=== PATIENT | male | born 1950 | race Caucasian/White ===

== ENCOUNTER → 2023-12-29 08:32 | Outpatient (REF) | payer MEDICARE, SELFPAY ==
[2023-12-29 11:36] LABS: % Basophils 0.5 % (0-2); % Eosinophils 2.8 % (0-6); % Immature Granulocytes 0.2 % (0-0.5); % Lymphocytes 22.3 % (20.5-51.1); % Monocytes 8.6 % (1.7-9.3); % Neutrophils 65.6 % (42.2-75.2); Absolute Eosinophils 0.2 10^3/uL (0-0.7); Absolute Lymphocytes 1.8 10^3/uL (1.2-3.4); Absolute Monocytes 0.7 10^3/uL (0.1-0.6); Absolute Neutrophils 5.4 10^3/uL (1.4-6.5); Hematocrit 45.1 % (39.0-52.0); Hemoglobin 14.9 g/dL (13.0-18.0); Mean Corpuscular Hgb 29.4 pg (27.0-31.0); Mean Corpuscular Volume 89.1 fL (80.0-94.0); Mean Platelet Volume 10.1 fL (7.4-10.4); Nucleated Red Blood Cells % 0 % (-); Platelet Count 272 10^3/uL (130-400); Red Blood Cell Count 5.06 10^6/uL (4.70-6.10); Red Cell Dist. Width 13.2 % (11.5-14.5); White Blood Cell Count 8.2 10^3/uL (4.8-10.8)
[2023-12-29 11:41] LABS: Urine Albumin 1+ (Neg - Trace); Urine Bilirubin Negative (Negative); Urine Character Clear (Clear); Urine Color Yellow; Urine Glucose 3+ (Negative); Urine Ketone Negative (Negative); Urine Leukocyte Negative (Negative); Urine Nitrite Negative (Negative); Urine Occult Blood Negative (Negative); Urine Specific Gravity 1.015 (<1.030); Urine Urobilinogen Negative (Neg - 1+)
[2023-12-29 11:52] LABS: ALT (SGPT) 35 U/L (0-50); AST (SGOT) 33 U/L (17-59); Albumin 4.2 g/dl (3.5-5.0); Alkaline Phosphatase 74 U/L (38-126); Blood Urea Nitrogen 31 mg/dl (9-20); Calcium 9.9 mg/dl (8.4-10.2); Carbon Dioxide 28 mmol/L (22-30); Chloride 102 mmol/L (98-107); Glucose 156 mg/dl (70-99); HDL Cholesterol 40 mg/dl; LDL Cholesterol, Calculated 57 mg/dl; Potassium 4.9 mmol/L (3.5-5.1); Sodium 140 mmol/L (135-145); Total Bilirubin 0.9 mg/dl (0.2-1.3); Total Cholesterol 125 mg/dl (50-199); Total Protein 6.9 g/dl (6.3-8.2); Triglyceride 144 mg/dl (10-149); Very Low Density Lipoprotein 28 mg/dl (0-30); eGFR 57.65
[2023-12-29 12:22] LABS: PSA, Total - Screen 1.12 ng/ml (0.0-4.0); TSH Reflex To Free T4 4.37 uIU/ml (0.47-4.68)
[2023-12-29 14:00] LABS: Urine Mucus Few; Urine Urothelial Cell 0-2 /LPF (FEW)
[2023-12-29 14:01] LABS: Urine Red Blood Cell 0-2 /HPF (0-2); Urine White Cell 0-2 /HPF (0-5)
[2023-12-29 14:04] LABS: Glycohemoglobin (HgbA1c) 7.2 % (4.0-5.6)
[2023-12-29 15:53] LABS: Microalbumin, Random Urine 53.3 mg/dl (0.6-1.7); Microalbumin/creatinine Ratio 780.4 mg/g
== END ==
LOC: HWLAB 08:32
PROVIDERS: ATTENDING PHYSICIAN Nurse Practitioner Adult Health; REFERRING PHYSICIAN Specialist
DX: R80.9 Proteinuria, unspecified (principal); I10 Essential (primary) hypertension; E87.5 Hyperkalemia; E11.9 Type 2 diabetes mellitus without complications; N18.31 Chronic kidney disease, stage 3a; E11.59 Type 2 diabetes mellitus with other circulatory complications; Z12.5 Encounter for screening for malignant neoplasm of prostate; E78.2 Mixed hyperlipidemia
CPT/HCPCS: 36415; 80053; 80061; 81003; 81015; 82043; 82570; 83036; 84443; 85025; G0103

== ENCOUNTER → 2024-02-02 08:37 | Outpatient (REF) | payer MEDICARE, SELFPAY ==
[2024-02-02 13:06] LABS: Blood Urea Nitrogen 33 mg/dl (9-20); Calcium 9.4 mg/dl (8.4-10.2); Carbon Dioxide 25 mmol/L (22-30); Chloride 105 mmol/L (98-107); Glucose 111 mg/dl (70-99); Potassium 4.7 mmol/L (3.5-5.1); Sodium 137 mmol/L (135-145); eGFR > 60.00
== END ==
LOC: HWLAB 08:37
PROVIDERS: ATTENDING PHYSICIAN Specialist; FAMILY PHYSICIAN Nurse Practitioner Adult Health
DX: I10 Essential (primary) hypertension (principal)
CPT/HCPCS: 36415; 80048

== ENCOUNTER → 2024-02-07 09:01 | Outpatient (REF) | payer MEDICARE, SELFPAY | LOC: RAD 09:01 | PROVIDERS: ATTENDING PHYSICIAN Surgery Vascular Surgery; FAMILY PHYSICIAN Nurse Practitioner Adult Health | DX: I73.9 Peripheral vascular disease, unspecified (principal) | CPT/HCPCS: 93922; 93925 ==

== ENCOUNTER → 2024-03-27 06:51 | Outpatient (REF) | payer MEDICARE, SELFPAY | LOC: HWRAD 06:51 | PROVIDERS: ATTENDING PHYSICIAN Nurse Practitioner Adult Health | DX: Z87.81 Personal history of (healed) traumatic fracture (principal); Z13.820 Encounter for screening for osteoporosis | CPT/HCPCS: 77080 ==

== ENCOUNTER → 2024-04-19 08:07 | Outpatient (REF) | payer MEDICARE, SELFPAY ==
[2024-04-19 11:33] LABS: Blood Urea Nitrogen 37 mg/dl (9-20); Calcium 9.8 mg/dl (8.4-10.2); Carbon Dioxide 26 mmol/L (22-30); Chloride 105 mmol/L (98-107); Glucose 91 mg/dl (70-99); Potassium 4.9 mmol/L (3.5-5.1); Sodium 141 mmol/L (135-145); eGFR 52.41
== END ==
LOC: HWLAB 08:07
PROVIDERS: ATTENDING PHYSICIAN Specialist; FAMILY PHYSICIAN Nurse Practitioner Adult Health
DX: R80.9 Proteinuria, unspecified (principal); I10 Essential (primary) hypertension; E87.5 Hyperkalemia; N18.31 Chronic kidney disease, stage 3a
CPT/HCPCS: 36415; 80048

== ENCOUNTER → 2024-06-13 06:42 | Outpatient (REF) | payer MEDICARE, SELFPAY | LOC: PAVMRI 06:42 | PROVIDERS: ATTENDING PHYSICIAN Orthopaedic Surgery; FAMILY PHYSICIAN Nurse Practitioner Adult Health | DX: M54.50 Low back pain, unspecified (principal); M54.6 Pain in thoracic spine | CPT/HCPCS: 72146; 72148 ==

== ENCOUNTER → 2024-08-08 09:54 | Outpatient (REF) | payer MEDICARE, SELFPAY ==
[2024-08-08 12:09] LABS: ALT (SGPT) 23 U/L (0-50); AST (SGOT) 24 U/L (17-59); Albumin 4.7 g/dl (3.5-5.0); Alkaline Phosphatase 71 U/L (38-126); Amylase 162 U/L (30-110); Direct Bilirubin 0.3 mg/dl (0.0-0.4); Lipase 229 U/L (23-300); Total Bilirubin 0.7 mg/dl (0.2-1.3); Total Protein 7.3 g/dl (6.3-8.2)
[2024-08-08 12:31] LABS: Glycohemoglobin (HgbA1c) 6.6 % (4.0-5.6)
== END ==
LOC: HWLAB 09:54
PROVIDERS: ATTENDING PHYSICIAN Nurse Practitioner Adult Health
DX: E11.59 Type 2 diabetes mellitus with other circulatory complications (principal); E78.2 Mixed hyperlipidemia; Z87.19 Personal history of other diseases of the digestive system
CPT/HCPCS: 36415; 80076; 82150; 83036; 83690

== ENCOUNTER → 2024-09-25 07:51 | Outpatient (REF) | payer MEDICARE, SELFPAY ==
[2024-09-25 09:46] LABS: % Basophils 0.4 % (0-2); % Eosinophils 0.2 % (0-6); % Immature Granulocytes 0.4 % (0-0.5); % Lymphocytes 24.5 % (20.5-51.1); % Neutrophils 65.5 % (42.2-75.2); Absolute Lymphocytes 2.7 10^3/uL (1.2-3.4); Absolute Neutrophils 7.3 10^3/uL (1.4-6.5); Hematocrit 48.5 % (39.0-52.0); Hemoglobin 16.1 g/dL (13.0-18.0); Mean Corp Hgb Conc. 33.2 g/dL (33.0-37.0); Mean Corpuscular Hgb 29.8 pg (27.0-31.0); Mean Corpuscular Volume 89.6 fL (80.0-94.0); Mean Platelet Volume 9.7 fL (7.4-10.4); Nucleated Red Blood Cells % 0 % (-); Platelet Count 307 10^3/uL (130-400); Red Blood Cell Count 5.41 10^6/uL (4.70-6.10); Red Cell Dist. Width 13.2 % (11.5-14.5); White Blood Cell Count 11.1 10^3/uL (4.8-10.8)
[2024-09-25 10:00] LABS: Blood Urea Nitrogen 43 mg/dl (9-20); Calcium 10.8 mg/dl (8.4-10.2); Carbon Dioxide 25 mmol/L (22-30); Chloride 103 mmol/L (98-107); Glucose 176 mg/dl (70-99); Potassium 5.5 mmol/L (3.5-5.1); Sodium 144 mmol/L (135-145); eGFR 52.41
[2024-09-25 10:53] LABS: Microalbumin/creatinine Ratio 661.5 mg/g
== END ==
LOC: HWLAB 07:51
PROVIDERS: ATTENDING PHYSICIAN Specialist; FAMILY PHYSICIAN Nurse Practitioner Adult Health
DX: I10 Essential (primary) hypertension (principal); E87.5 Hyperkalemia; R80.9 Proteinuria, unspecified; E11.59 Type 2 diabetes mellitus with other circulatory complications; N18.31 Chronic kidney disease, stage 3a
CPT/HCPCS: 36415; 80048; 82043; 82570; 85025

== ENCOUNTER → 2024-11-20 09:21 | Outpatient (REF) | payer MEDICARE, SELFPAY ==
[2024-11-20 11:44] LABS: Blood Urea Nitrogen 45 mg/dl (9-20); Calcium 9.5 mg/dl (8.4-10.2); Carbon Dioxide 26 mmol/L (22-30); Chloride 100 mmol/L (98-107); Glucose 144 mg/dl (70-99); Potassium 5.1 mmol/L (3.5-5.1); Sodium 137 mmol/L (135-145); eGFR 52.41
== END ==
LOC: HWLAB 09:21
PROVIDERS: ATTENDING PHYSICIAN Specialist; FAMILY PHYSICIAN Nurse Practitioner Adult Health
DX: I10 Essential (primary) hypertension (principal)
CPT/HCPCS: 36415; 80048

== ENCOUNTER → 2025-01-12 08:12 | Outpatient (REF) | payer MEDICARE, SELFPAY | LOC: HWRCS 08:12 | PROVIDERS: ATTENDING PHYSICIAN Internal Medicine Cardiovascular Disease; FAMILY PHYSICIAN Nurse Practitioner Adult Health | DX: I25.2 Old myocardial infarction (principal) | CPT/HCPCS: 93306 ==

== ENCOUNTER → 2025-01-19 07:52 | Outpatient (REF) | payer MEDICARE, SELFPAY ==
[2025-01-19 10:15] LABS: % Basophils 0.3 % (0-2); % Eosinophils 0.5 % (0-6); % Immature Granulocytes 0.4 % (0-0.5); % Lymphocytes 18.5 % (20.5-51.1); % Monocytes 9.1 % (1.7-9.3); % Neutrophils 71.2 % (42.2-75.2); Absolute Eosinophils 0.1 10^3/uL (0-0.7); Absolute Lymphocytes 1.8 10^3/uL (1.2-3.4); Absolute Monocytes 0.9 10^3/uL (0.1-0.6); Absolute Neutrophils 6.8 10^3/uL (1.4-6.5); Hematocrit 44.8 % (39.0-52.0); Hemoglobin 14.8 g/dL (13.0-18.0); Mean Corpuscular Hgb 29.3 pg (27.0-31.0); Mean Corpuscular Volume 88.7 fL (80.0-94.0); Mean Platelet Volume 9.7 fL (7.4-10.4); Nucleated Red Blood Cells % 0 % (-); Platelet Count 272 10^3/uL (130-400); Red Blood Cell Count 5.05 10^6/uL (4.70-6.10); Red Cell Dist. Width 13.2 % (11.5-14.5); White Blood Cell Count 9.5 10^3/uL (4.8-10.8)
[2025-01-19 10:23] LABS: Blood Urea Nitrogen 33 mg/dl (9-20); Calcium 10.4 mg/dl (8.4-10.2); Carbon Dioxide 26 mmol/L (22-30); Chloride 100 mmol/L (98-107); Glucose 111 mg/dl (70-99); Sodium 138 mmol/L (135-145); eGFR 52.09
[2025-01-19 12:13] LABS: Microalbumin, Random Urine > 57.0 mg/dl (0.6-1.7)
== END ==
LOC: HWLAB 07:52
PROVIDERS: ATTENDING PHYSICIAN Specialist; FAMILY PHYSICIAN Nurse Practitioner Adult Health
DX: I10 Essential (primary) hypertension (principal); E87.5 Hyperkalemia; R80.9 Proteinuria, unspecified; E11.59 Type 2 diabetes mellitus with other circulatory complications; N18.31 Chronic kidney disease, stage 3a
CPT/HCPCS: 36415; 80048; 82043; 82570; 85025

== ENCOUNTER → 2025-02-16 08:53 | Outpatient (REF) | payer MEDICARE, SELFPAY | LOC: RAD 08:53 | PROVIDERS: ATTENDING PHYSICIAN Registered Nurse; FAMILY PHYSICIAN Nurse Practitioner Adult Health | DX: I73.9 Peripheral vascular disease, unspecified (principal) | CPT/HCPCS: 93922; 93925 ==

== ENCOUNTER → 2025-03-13 07:38 | Outpatient (REF) | payer MEDICARE, SELFPAY | LOC: RAD 07:38 | PROVIDERS: ATTENDING PHYSICIAN Surgery Vascular Surgery; FAMILY PHYSICIAN Nurse Practitioner Adult Health | DX: I72.3 Aneurysm of iliac artery (principal) | CPT/HCPCS: 76770 ==

== ENCOUNTER → 2025-03-16 09:26 | Outpatient (REF) | payer MEDICARE, SELFPAY ==
[2025-03-16 12:20] LABS: Amylase 275 U/L (30-110); HDL Cholesterol 33 mg/dl; LDL Cholesterol, Calculated 33 mg/dl; Lipase 1234 U/L (23-300); Total Cholesterol 96 mg/dl (50-199); Triglyceride 151 mg/dl (10-149); Very Low Density Lipoprotein 30 mg/dl (0-30)
[2025-03-16 12:35] LABS: Vitamin D, 25-OH*** 62.3 ng/mL (30-80)
[2025-03-16 12:45] LABS: Glycohemoglobin (HgbA1c) 6.9 % (4.0-5.6)
[2025-03-16 12:49] LABS: TSH Reflex To Free T4 2.35 uIU/ml (0.47-4.68)
== END ==
LOC: HWLAB 09:26
PROVIDERS: ATTENDING PHYSICIAN Internal Medicine Cardiovascular Disease; FAMILY PHYSICIAN Nurse Practitioner Adult Health; REFERRING PHYSICIAN Specialist
DX: E78.2 Mixed hyperlipidemia (principal); Z87.19 Personal history of other diseases of the digestive system; Z87.81 Personal history of (healed) traumatic fracture; M85.88 Other specified disorders of bone density and structure, other site; E11.59 Type 2 diabetes mellitus with other circulatory complications; R80.9 Proteinuria, unspecified; Z12.5 Encounter for screening for malignant neoplasm of prostate; Z13.9 Encounter for screening, unspecified
CPT/HCPCS: 80061; 82150; 82306; 83036; 83690; 84443; G0103

== ENCOUNTER 2025-03-16 15:49 | Emergency (ER) | payer MEDICARE, SELFPAY ==
[2025-03-16] VITALS (7 sets, daily range): BP systolic 107–121; BP diastolic 69–78; BMI 26.9
[2025-03-16 16:33] LABS: % Basophils 0.3 % (0-2); % Eosinophils 2.9 % (0-6); % Immature Granulocytes 0.3 % (0-0.5); % Lymphocytes 20.5 % (20.5-51.1); % Monocytes 9.5 % (1.7-9.3); % Neutrophils 66.5 % (42.2-75.2); Absolute Eosinophils 0.3 10^3/uL (0-0.7); Absolute Lymphocytes 1.8 10^3/uL (1.2-3.4); Absolute Monocytes 0.8 10^3/uL (0.1-0.6); Absolute Neutrophils 5.9 10^3/uL (1.4-6.5); Hematocrit 39.6 % (39.0-52.0); Hemoglobin 13.1 g/dL (13.0-18.0); Mean Corp Hgb Conc. 33.1 g/dL (33.0-37.0); Mean Corpuscular Hgb 29.1 pg (27.0-31.0); Mean Platelet Volume 9.6 fL (7.4-10.4); Nucleated Red Blood Cells % 0 % (-); Platelet Count 255 10^3/uL (130-400); Red Cell Dist. Width 13.3 % (11.5-14.5); White Blood Cell Count 8.9 10^3/uL (4.8-10.8)
[2025-03-16 17:14] LABS: ALT (SGPT) 21 U/L (0-50); AST (SGOT) 21 U/L (17-59); Albumin 4.1 g/dl (3.5-5.0); Alkaline Phosphatase 56 U/L (38-126); Blood Urea Nitrogen 49 mg/dl (9-20); Calcium 9.1 mg/dl (8.4-10.2); Carbon Dioxide 23 mmol/L (22-30); Chloride 104 mmol/L (98-107); Glucose 157 mg/dl (70-99); Lipase 537 U/L (23-300); Potassium 6.3 mmol/L (3.5-5.1); Sodium 138 mmol/L (135-145); Total Bilirubin 0.7 mg/dl (0.2-1.3); Total Protein 6.7 g/dl (6.3-8.2); eGFR 36.11
--- NOTE | 2025-03-16 18:13 | ED.GENMED ---
History of Present Illness
<Camilo Lawson DO - Last Filed: 03/16/25 18:13>
General
Chief Complaint: Abnormal Lab Value
Time Seen by Provider: 03/16/25 16:45
<Kristin Frias NP - Last Filed: 03/16/25 23:14>
General
Source: patient
Exam Limitations: none
Nursing documentation reviewed up to this point in time: agreed with
History of Present Illness
History of Present Illness:
Patient sent to ED by PCP for elevated Lipase. Patient has a history of pancreatitis. He is currently taking trulicty and his PCP continues to monitor his labs. His Lipase this AM resulted at 1234. He was advised to come to ED. He denies any
abdominal pain. Feels well.
Past History
<Camilo Lawson, DO - Last Filed: 03/16/25 18:13>
Past History
ED Past Medical History: Other (Coronary disease with stent, A. fib on Eliquis, hyperlipidemia, SC, sleep apnea, GERD, peptic ulcer disease, diabetes)
Social History
Tobacco: Former smoker
Alcohol: None
Family History
Family History: Other (Father with colon cancer)
<Kristin Frias NP - Last Filed: 03/16/25 23:14>
Past History
ED Past Medical History: GERD, HTN, Hypercholesterolemia, NIDDM and Other (Hyperkalemia)
Review of Systems
<Kristin Frias NP - Last Filed: 03/16/25 23:14>
Review of Systems
Allergies reviewed?: Yes
All Other Systems: ROS reviewed and negative except as documented in HPI and ROS
Constitutional: Reports no symptoms
EENT: Reports no symptoms
Respiratory: Reports no symptoms
Cardiac: Reports no symptoms
ABD/GI: Reports no symptoms
: Reports no symptoms
Musculoskeletal: Reports no symptoms
Skin: Reports no symptoms
Neurological: Reports no symptoms
Psychiatric: Reports no symptoms
Phy Exam
<Kristin Frias BREAK OUT WORKER - Last Filed: 03/16/25 23:14>
General Physical Exam
General Presentation: well appearing and no apparent distress
General age: appears stated age
General Skin: warm and dry
General Habitus: normal
General Mental: alert
Cardiovascular Exam
Cardiovascular Exam: regular rate/rhythm and no edema
Pulmonary Exam
Pulmonary Exam: lungs clear, no respiratory distress and chest non tender
Gastrointestinal Exam
Gastrointestinal Exam: normal bowel sounds, non tender, soft, no organomegaly, no pulsatile mass and non distended
Musculoskeletal Exam
Musculoskeletal Exam: full ROM and neuro vasc intact
Skin Exam
Skin Exam: normal color, warm/dry and no rash
Psychiatric Exam
Psychiatric Exam: normal mood/affect
Course
<Camilo Lawson, DO - Last Filed: 03/16/25 18:13>
Orders/Labs/Results
Orders:
Orders
03/16/25 16:23
Complete Blood Count/With Diff Urgent
Comprehensive Metabolic Panel Urgent
Lipase Urgent
03/16/25 17:29
Electrocardiogram (*1) Urgent
Reason for Study: Other
Other Reason for Exam: hyperkalemia
EKG- Treatment ONCE
03/16/25 18:00
Albuterol Sulfate [Ventolin Nebules] 10 mg INH R NOW STA
Dextrose 50%-Water [Dextrose 50% Syringe] 12.5 grams IV [id number] PRN
Dextrose 50%-Water [Dextrose 50% Syringe] 25 grams IV NOW STA
Insulin Human Regular [Novolin R] 5 units IV NOW STA
03/16/25 18:05
Bedside Glucose PRE IV Insulin- HyperK+ NOW
03/16/25 18:06
Sodium Zirconium Cyclosilicate [Lokelma] 10 gram PO NOW STA
03/16/25 18:15
0.9% Sodium Chloride 1000 ml [Nss] 1,000 ml IV 999 mls/hr
03/16/25 19:35
Bedside Glucose POST IV Insulin- HyperK+ Q1HX2,Q2HX2
03/16/25 20:28
Potassium Urgent
Comment: draw 2 hours after regular insulin IV administration
03/16/25 22:24
Potassium Urgent
Comment: draw 4 hours after Lokelma administered
Abnormal Lab Results
03/16/25 03/16/25 03/16/25
16:23 18:30 19:36
RBC 4.50 L 10^6/uL
(4.70-6.10)
Absolute Monos (auto) 0.8 H 10^3/uL
(0.1-0.6)
Monocytes % 9.5 H %
(1.7-9.3)
Potassium 6.3 H* mmol/L
(3.5-5.1)
BUN 49 H mg/dl
(9-20)
Creatinine 1.9 H mg/dL
(0.7-1.3)
Glucose 157 H mg/dl
(70-99)
Lipase 537 H U/L
(23-300)
POC Glucose 107 H mg/dl 121 H mg/dl
(70-99) (70-99)
03/16/25
20:28
RBC
Absolute Monos (auto)
Monocytes %
Potassium
BUN
Creatinine
Glucose
Lipase
POC Glucose 105 H mg/dl
(70-99)
03/16/25 16:23
03/16/25 22:24
Vital Signs
Initial and Last Documented VS:
Initial Vital Signs
Temp Pulse Resp BP Pulse Ox
97.6 F 69 18 111/77 97
03/16/25 16:08 03/16/25 16:08 03/16/25 16:08 03/16/25 16:08 03/16/25 16:08
Last Documented Vital Signs
Temp Pulse Resp BP Pulse Ox
97.6 F 70 20 121/78 95
03/16/25 17:54 03/16/25 22:51 03/16/25 22:51 03/16/25 22:51 03/16/25 22:51
<Kristin Frias NP - Last Filed: 03/16/25 23:14>
Orders/Labs/Results
Orders:
Orders
03/16/25 16:23
Complete Blood Count/With Diff Urgent
Comprehensive Metabolic Panel Urgent
Lipase Urgent
03/16/25 17:29
Electrocardiogram (*1) Urgent
Reason for Study: Other
Other Reason for Exam: hyperkalemia
EKG- Treatment ONCE
03/16/25 18:00
Albuterol Sulfate [Ventolin Nebules] 10 mg INH R NOW STA
Dextrose 50%-Water [Dextrose 50% Syringe] 12.5 grams IV [id number] PRN
Dextrose 50%-Water [Dextrose 50% Syringe] 25 grams IV NOW STA
Insulin Human Regular [Novolin R] 5 units IV NOW STA
03/16/25 18:05
Bedside Glucose PRE IV Insulin- HyperK+ NOW
03/16/25 18:06
Sodium Zirconium Cyclosilicate [Lokelma] 10 gram PO NOW STA
03/16/25 18:15
0.9% Sodium Chloride 1000 ml [Nss] 1,000 ml IV 999 mls/hr
03/16/25 19:35
Bedside Glucose POST IV Insulin- HyperK+ Q1HX2,Q2HX2
03/16/25 20:28
Potassium Urgent
Comment: draw 2 hours after regular insulin IV administration
03/16/25 22:24
Potassium Urgent
Comment: draw 4 hours after Lokelma administered
Abnormal Lab Results
03/16/25 03/16/25 03/16/25
16:23 18:30 19:36
RBC 4.50 L 10^6/uL
(4.70-6.10)
Absolute Monos (auto) 0.8 H 10^3/uL
(0.1-0.6)
Monocytes % 9.5 H %
(1.7-9.3)
Potassium 6.3 H* mmol/L
(3.5-5.1)
BUN 49 H mg/dl
(9-20)
Creatinine 1.9 H mg/dL
(0.7-1.3)
Glucose 157 H mg/dl
(70-99)
Lipase 537 H U/L
(23-300)
POC Glucose 107 H mg/dl 121 H mg/dl
(70-99) (70-99)
03/16/25
20:28
RBC
Absolute Monos (auto)
Monocytes %
Potassium
BUN
Creatinine
Glucose
Lipase
POC Glucose 105 H mg/dl
(70-99)
03/16/25 16:23
03/16/25 22:24
Vital Signs
Initial and Last Documented VS:
Initial Vital Signs
Temp Pulse Resp BP Pulse Ox
97.6 F 69 18 111/77 97
03/16/25 16:08 03/16/25 16:08 03/16/25 16:08 03/16/25 16:08 03/16/25 16:08
Last Documented Vital Signs
Temp Pulse Resp BP Pulse Ox
97.6 F 70 20 121/78 95
03/16/25 17:54 03/16/25 22:51 03/16/25 22:51 03/16/25 22:51 03/16/25 22:51
<Kristin Frias [employer] OUT WORKER - Last Filed: 03/16/25 23:14>
*Pulse Oximetry
Patient hypoxic: no
*EKG
Rate: normal
Rhythm: sinus
*Critical Care Note
Total Time (30-74mins, 75-104mins- exclusive of procedures): Not Applicable
<Kristin Frias BREAK OUT WORKER - Last Filed: 03/16/25 23:14>
Update Note
Update Note:
Patient sent to ED for Lipase of 1234 . Repeat tonight is 537. No abdominal pain on exam. K tonight 6.3. He has a history of hyperkalemia and takes Lokelma 10mg every Sun and Thurs. He reports complaince with meds. states he eats a huge
amt of potatoes daily and that this may be contributing to his elevated readings. Case discussed with Dr. Lawson who also evaluated this patient. Patient given a dose of Lokelma in ED as weel as insulin, albuterol, and IVF. Repeat K of
4.2 x 2. EKG NSR. He will be discharged home tonight and will follow [facility] PCP on Wednesday. Patient is a patient of Dr. Richardson. Salima 1.9. Dr. Cheng notified of plan and agrees with treatment plan.
ED Attending Note
<Camilo Lawson DO - Last Filed: 03/16/25 18:13>
ED Attending Note
Patient seen and examined by attending physician: Yes
I performed the substantive portion of visit, reviewed & personally made and approve the management plan that is documented in note by myself or VIJAY.: Yes
ED Attending Note:
I evaluated patient at bedside. The patient's lipase was high as an outpatient but is only 537 now. I am more concerned about the potassium of 6.3. He does take Lokelma couple times a week. He does have a diet that is very high in potatoes. I
have also ordered insulin, albuterol via neb, and fluids as he does have worsening renal function.
-
Portions of this chart may have been created with voice recognition software.� Occasional wrong word or��sound alike� substitutions may have occurred due to the inherent limitations of voice recognition software.
Discharge Plan
Departure
Patient Disposition: Home (Routine Discharge)
Date of Disposition: 03/16/25
Time of Disposition: 22:51
Patient with high blood pressure during this ER visit?: No
Condition: Good
Covid-19: Not Applicable
Discharge Problem:
Acute hyperkalemia
Instructions: Hyperkalemia (DC)
Prescriptions:
No Action
metoprolol succinate [Toprol XL] 50 mg Tablet Extended Release 24 Hr
50 mg PO BID
alendronate [Fosamax] 70 mg Tablet
70 mg PO WE
dofetilide 250 mcg Capsule
250 mcg PO BID
cyanocobalamin (vitamin B-12) 1,000 mcg Tablet
1,000 mcg PO DAILY
valsartan 80 mg Tablet
80 mg PO QPM
pantoprazole [Protonix] 20 mg Tablet,Delayed Release (Dr/Ec)
20 mg PO DAILY
calcium carbonate [Calcium 600] 600 mg calcium (1,500 mg) Tablet
600 mg PO BID
amlodipine [Norvasc] 10 mg Tablet
10 mg PO QPM
metformin 1,000 mg Tablet
1,000 mg PO BID
cholecalciferol (vitamin D3) [Vitamin D3] 25 mcg (1,000 unit) Tablet
25 mcg PO DAILY
insulin glargine [Lantus Solostar U-100 Insulin] 100 unit/mL (3 mL) Insulin Pen
32 unit SC HS
Eliquis 5 mg Tablet
5 mg PO BID
dapagliflozin propanediol [Farxiga] 10 mg Tablet
10 mg PO DAILY
Lokelma 10 gram Powder In Packet
10 g PO SUTH@1800
Trulicity 4.5 mg/0.5 mL Pen Injector
4.5 mg SC RODGERS
tramadol 50 mg Tablet
50 mg PO BIDPRN PRN (Reason: moderate pain)
Referrals:
Clau Lynne CRNP [Family Provider] - Tomorrow
Activity Restrictions/Additional Instructions:
Decrease your potato intake.
Interventions
Interventions:
*Risk Screen - Suicide Last Done: 03/16/25 16:08
*General Assessment Last Done: 03/16/25 16:08
*Neglect/Abuse Screening Last Done: 03/16/25 20:05
*ED- Fall Risk Assessment Last Done: 03/16/25 22:37
*ED COVID-19 Vaccine History Last Done: 03/16/25 16:08
*Nursing Disposition Last Done: 03/16/25 22:51
Discharge Date and Time
Print Language: NICARAGUAN
[2025-03-16 18:32] LABS: Glucose - Point of Care 107 mg/dl (70-99)
[2025-03-16] MEDS: LOKELMA 10 GRAM PO (18:34)
[2025-03-16] MEDS: NSS 1000 IV (18:36)
[2025-03-16] MEDS: DEXTROSE 50% SYRINGE 25 GRAMS IV (18:38)
[2025-03-16] MEDS: VENTOLIN NEBULES 10 MG INH (18:39)
[2025-03-16] MEDS: NOVOLIN R 5 UNITS IV (18:53)
[2025-03-16 19:37] LABS: Glucose - Point of Care 121 mg/dl (70-99)
[2025-03-16 20:30] LABS: Glucose - Point of Care 105 mg/dl (70-99)
[2025-03-16 21:00] LABS: Potassium 4.2 mmol/L (3.5-5.1)
[2025-03-16 22:28] LABS: Glucose - Point of Care 93 mg/dl (70-99)
[2025-03-16 22:47] LABS: Potassium 4.2 mmol/L (3.5-5.1)
== END 2025-03-16 23:25 | disposition home or self-care (01) ==
LOC: EMR 15:49
PROVIDERS: Nurse Practitioner; EMERGENCY PHYSICIAN Emergency Medicine; FAMILY PHYSICIAN Nurse Practitioner Adult Health
DX: E87.5 Hyperkalemia (principal); Z87.891 Personal history of nicotine dependence
CPT/HCPCS: 99284; 96374; 94640; 80053; 82962; 83690; 84132; 85025; 93005

== ENCOUNTER → 2025-03-20 09:59 | Outpatient (REF) | payer MEDICARE, SELFPAY ==
[2025-03-20 12:14] LABS: Lipase 470 U/L (23-300); Potassium 4.4 mmol/L (3.5-5.1)
== END ==
LOC: HWLAB 09:59
PROVIDERS: ATTENDING PHYSICIAN Nurse Practitioner Adult Health; REFERRING PHYSICIAN Specialist
DX: R74.8 Abnormal levels of other serum enzymes (principal); E87.5 Hyperkalemia
CPT/HCPCS: 36415; 83690; 84132

== ENCOUNTER → 2025-03-27 09:01 | Outpatient (REF) | payer MEDICARE, SELFPAY ==
[2025-03-27 11:43] LABS: Albumin 4.6 g/dl (3.5-5.0); Blood Urea Nitrogen 37 mg/dl (9-20); Calcium 9.6 mg/dl (8.4-10.2); Carbon Dioxide 25 mmol/L (22-30); Chloride 107 mmol/L (98-107); Glucose 124 mg/dl (70-99); Phosphorus 3.7 mg/dl (2.5-4.5); Potassium 5.1 mmol/L (3.5-5.1); Sodium 143 mmol/L (135-145); eGFR > 60.00
[2025-03-27 11:53] LABS: Lipase 240 U/L (23-300)
== END ==
LOC: HWLAB 09:01
PROVIDERS: ATTENDING PHYSICIAN Specialist; FAMILY PHYSICIAN Nurse Practitioner Adult Health
DX: E11.9 Type 2 diabetes mellitus without complications (principal); E87.5 Hyperkalemia; R80.9 Proteinuria, unspecified; N18.31 Chronic kidney disease, stage 3a
CPT/HCPCS: 36415; 80069; 83690

== ENCOUNTER → 2025-03-28 09:14 | Outpatient (REF) | payer MEDICARE, SELFPAY | LOC: RAD 09:14 | PROVIDERS: ATTENDING PHYSICIAN Nurse Practitioner Adult Health; OTHER PHYSICIAN Specialist | DX: E11.59 Type 2 diabetes mellitus with other circulatory complications (principal); N18.31 Chronic kidney disease, stage 3a; R74.8 Abnormal levels of other serum enzymes; R63.4 Abnormal weight loss | CPT/HCPCS: 74177; Q9967 ==

== ENCOUNTER → 2025-04-18 08:43 | Outpatient (REF) | payer MEDICARE, SELFPAY ==
[2025-04-18 12:13] LABS: Blood Urea Nitrogen 34 mg/dl (9-20); Calcium 9.6 mg/dl (8.4-10.2); Carbon Dioxide 28 mmol/L (22-30); Chloride 105 mmol/L (98-107); Glucose 117 mg/dl (70-99); Potassium 4.6 mmol/L (3.5-5.1); Sodium 140 mmol/L (135-145); eGFR 52.09
== END ==
LOC: HWLAB 08:43
PROVIDERS: ATTENDING PHYSICIAN Specialist; FAMILY PHYSICIAN Nurse Practitioner Adult Health
DX: I10 Essential (primary) hypertension (principal); E78.2 Mixed hyperlipidemia; E87.5 Hyperkalemia
CPT/HCPCS: 36415; 80048

== ENCOUNTER → 2025-06-15 07:47 | Outpatient (REF) | payer MEDICARE, SELFPAY ==
[2025-06-15 09:31] LABS: Glycohemoglobin (HgbA1c) 7.6 % (4.0-5.6)
== END ==
LOC: HWLAB 07:47
PROVIDERS: ATTENDING PHYSICIAN Nurse Practitioner Adult Health
DX: E11.59 Type 2 diabetes mellitus with other circulatory complications (principal)
CPT/HCPCS: 36415; 83036

== ENCOUNTER → 2025-07-09 07:21 | Outpatient (REF) | payer MEDICARE, SELFPAY ==
[2025-07-09 10:21] LABS: Blood Urea Nitrogen 58 mg/dl (9-20); Calcium 9.5 mg/dl (8.4-10.2); Carbon Dioxide 26 mmol/L (22-30); Chloride 108 mmol/L (98-107); Glucose 151 mg/dl (70-99); Potassium 5.2 mmol/L (3.5-5.1); Sodium 142 mmol/L (135-145); eGFR 41.26
== END ==
LOC: HWLAB 07:21
PROVIDERS: ATTENDING PHYSICIAN Specialist; FAMILY PHYSICIAN Nurse Practitioner Adult Health
DX: I10 Essential (primary) hypertension (principal); R80.9 Proteinuria, unspecified; N18.31 Chronic kidney disease, stage 3a
CPT/HCPCS: 36415; 80048; 82570; 84156

== ENCOUNTER → 2025-07-16 08:53 | Outpatient (REF) | payer MEDICARE, SELFPAY ==
[2025-07-16 13:36] LABS: Albumin 4.7 g/dl (3.5-5.0); Blood Urea Nitrogen 44 mg/dl (9-20); Calcium 9.9 mg/dl (8.4-10.2); Carbon Dioxide 26 mmol/L (22-30); Chloride 107 mmol/L (98-107); Glucose 87 mg/dl (70-99); Potassium 4.7 mmol/L (3.5-5.1); Sodium 140 mmol/L (135-145); eGFR 47.95
== END ==
LOC: HWLAB 08:53
PROVIDERS: ATTENDING PHYSICIAN Specialist; FAMILY PHYSICIAN Nurse Practitioner Adult Health
DX: I10 Essential (primary) hypertension (principal)
CPT/HCPCS: 36415; 80069

== ENCOUNTER → 2025-09-07 12:18 | Outpatient (REF) | payer MEDICARE, SELFPAY | LOC: MRI 3T 12:18 | PROVIDERS: ATTENDING PHYSICIAN Nurse Practitioner Adult Health | DX: Z87.19 Personal history of other diseases of the digestive system (principal); R74.8 Abnormal levels of other serum enzymes; K86.89 Other specified diseases of pancreas | CPT/HCPCS: 74183; A9575 ==

== ENCOUNTER → 2025-10-03 14:58 | Outpatient (REF) | payer MEDICARE, SELFPAY | LOC: HWRAD 14:58 | PROVIDERS: ATTENDING PHYSICIAN Nurse Practitioner Family; FAMILY PHYSICIAN Nurse Practitioner Adult Health | DX: E07.9 Disorder of thyroid, unspecified (principal) | CPT/HCPCS: 76536 ==

== ENCOUNTER → 2025-10-05 08:20 | Outpatient (REF) | payer MEDICARE, SELFPAY ==
[2025-10-05 10:24] LABS: Albumin 4.4 g/dl (3.5-5.0); Blood Urea Nitrogen 41 mg/dl (9-20); Calcium 9.8 mg/dl (8.4-10.2); Carbon Dioxide 28 mmol/L (22-30); Chloride 104 mmol/L (98-107); Glucose 113 mg/dl (70-99); Potassium 4.6 mmol/L (3.5-5.1); Sodium 136 mmol/L (135-145); eGFR 44.38
== END ==
LOC: HWLAB 08:20
PROVIDERS: ATTENDING PHYSICIAN Specialist; FAMILY PHYSICIAN Nurse Practitioner Adult Health
DX: I10 Essential (primary) hypertension (principal)
CPT/HCPCS: 36415; 80069

== ENCOUNTER → 2025-10-17 07:39 | Outpatient (REF) | payer MEDICARE, SELFPAY ==
[2025-10-17 09:14] LABS: ALT (SGPT) 28 U/L (0-50); AST (SGOT) 27 U/L (17-59); Albumin 4.6 g/dl (3.5-5.0); Alkaline Phosphatase 71 U/L (38-126); Blood Urea Nitrogen 40 mg/dl (9-20); Calcium 9.9 mg/dl (8.4-10.2); Carbon Dioxide 26 mmol/L (22-30); Chloride 106 mmol/L (98-107); Glucose 161 mg/dl (70-99); HDL Cholesterol 41 mg/dl; LDL Cholesterol, Calculated 63 mg/dl; Potassium 5.4 mmol/L (3.5-5.1); Sodium 138 mmol/L (135-145); Total Protein 7.8 g/dl (6.3-8.2); Very Low Density Lipoprotein 24 mg/dl (0-30); eGFR 47.95
[2025-10-17 09:45] LABS: Cortisol, Random 3.9 ug/dl
[2025-10-17 09:46] LABS: Glycohemoglobin (HgbA1c) 7.4 % (4.0-5.9)
[2025-10-17 10:23] LABS: Microalbumin, Random Urine 74.7 mg/dl (0.6-1.7)
== END ==
LOC: REG 07:39
PROVIDERS: ATTENDING PHYSICIAN Nurse Practitioner Family; FAMILY PHYSICIAN Nurse Practitioner Adult Health
DX: E11.65 Type 2 diabetes mellitus with hyperglycemia (principal); E27.8 Other specified disorders of adrenal gland
CPT/HCPCS: 36415; 80053; 80061; 82043; 82088; 82533; 82570; 82627; 83036; 83835; 84144; 84244; 84443